=== PATIENT | male | born 1955 | race Asian ===

== ENCOUNTER → 2018-08-24 | Day surgery (SDC) | payer OTHER ==
[~2018-08-24] VITALS: Ht 165.1 cm; Wt 81.2 kg
[2018-08-24 09:05] VITALS: BP 133/76
[2018-08-24 14:39] VITALS: BP 112/70
== END | disposition home or self-care (01) ==
LOC: DS 08:06 → GI 12:30 → OR 12:30
PROVIDERS: Internal Medicine Gastroenterology
PROC: 0DBN8ZZ Excision of Sigmoid Colon, Via Natural or Artificial Opening Endoscopic (ICD-10-PCS; principal; 2018-08-24 12:30)
DX: Z12.11 Encounter for screening for malignant neoplasm of colon (principal); D12.5 Benign neoplasm of sigmoid colon; I10 Essential (primary) hypertension; Z87.891 Personal history of nicotine dependence; Z79.82 Long term (current) use of aspirin; Z68.28 Body mass index [BMI] 28.0-28.9, adult
CPT/HCPCS: 45378; J1200; J1610; J2250; J2310; J3010; J3490